=== PATIENT | female | born 1965 | race Caucasian/White ===

== ENCOUNTER 2023-09-05 08:24 | Outpatient (CLI) | payer OTHER, MEDICAID, SELFPAY ==
--- NOTE | 2023-09-05 08:34 | MM_ITS ---
WS: [id number] BILATERAL 3D TOMOSYNTHESIS DIGITAL DIAGNOSTIC MAMMOGRAPHY WITH CAD CLINICAL INFORMATION: RT BR SKIN THICKENING HISTORY: RIGHT breast pain COMPARISON: None. TECHNIQUE: Bilateral CC, MLO, and ML views. FINDINGS: The breasts are composed of heterogeneous fibroglandular density, which can limit the detection of sm all underlying mass lesions. No definite parenchymal abnormalities in the area of pain RIGHT breast. Ultrasound is pending. LEFT breast is unremarkable. ULTRASOUND BREAST RIGHT TECHNIQUE: Ultrasound right breast focused area of concern. CLINICAL INFORMATION: RT BR SKIN THICKENING COMPARISON: None. FINDINGS: Ultrasound RIGHT breast area of concern 9 o'clock position 10 cm from the nipple. No underlying suspi cious cystic or solid lesions. Dense underlying parenchymal tissue. No suspicious lesions to target f or biopsy. Findings are benign. IMPRESSION: MM/[place] [id number] BI-RADS: 2-Benign FOLLOW UP: 1 Year Follow-up Recommend return to annual screening mammography.
== END 2023-09-05 08:25 | disposition home or self-care (01) ==
PROVIDERS: PCP Physician Assistant; Visit Provider Physician Assistant
DX: R23.4 Changes in skin texture (principal)
CPT/HCPCS: 76642; 77062; G0279